=== PATIENT | female | born 1960 | race Caucasian/White ===

== ENCOUNTER 2019-01-23 14:41 | Emergency (ER) | payer OTHER ==
[2019-01-23] MEDS: KETOROLAC 15 MG INJ IM (18:37)
== END 2019-01-23 19:37 | disposition home or self-care (01) ==
LOC: FTE 14:41
DX: R51 Headache (principal); Z86.73 Personal history of transient ischemic attack (TIA), and cerebral infarction without residual deficits
CPT/HCPCS: 96372; 99284-25